=== PATIENT | male | born 1980 | race Caucasian/White ===

== ENCOUNTER → 2016-11-24 06:06 | Day surgery (SDC) | payer BC ==
[~2016-11-24 06:06] MED LIST: Buffered Lidocaine 1% SYRIN* 3 ML/SYR SYRINGE INTRADERM ONE; Bupivacaine 0.25% EPI 200,000* 30 ML SDV ONE; Dexamethasone IV* 4 MG/ML 1 ML (4 MG) IV SLOW PU ONE; Dexamethasone IV* 4 MG/ML 1 ML (4 MG) ONE; Famotidine IV* 10 MG/ML 2 ML (20 mg) IV ONE; Famotidine IV* 10 MG/ML 2 ML (20 mg) ONE; HYDROcodone/ACETAMIN 5-325 MG* 1 TAB PO PRN; Ketorolac INJ* 30 MG/ML 1 ML VIAL ONE; Lidocaine 2% PF* 5 ML VIAL ONE; Midazolam* 1 MG/ML 5 ML VIAL (5 MG) ONE; Ondansetron INJ* 2 MG/ML VIAL ONE; PROCHLORPERAZINE INJ 5 MG/ML 2 ML VIAL IV PRN; Propofol* 10 MG/ML 20 ML BTL IV PUSH ONE; ceFAZolin 2 GM PREMIX(*) 2 GM/50 ML BAG IVPB ONE; fentaNYL* 50 MCG/ML 2 ML VIAL (100 MCG VIAL) IV PRN; fentaNYL* 50 MCG/ML 2 ML VIAL (100 MCG VIAL) ONE; oxyCODONE/Acetamin 5/325 MG* TAB PO PRN
[2016-11-24 09:19] VITALS: BP 118/77
--- NOTE | 2016-11-24 23:46 | OP ---
DATE OF OPERATION: 11/24/16 - [facility] DATE OF : 76 SURGEON: Leslee Foster MD FOX RAISER: Geni Gonzalez PA-C ANESTHESIOLOGIST: Wanda Hamilton MD ANESTHESIA: General. PRE-OP DIAGNOSIS: Left knee medial meniscal tear. POST-OP DIAGNOSES: Left knee medial meniscal tear, lateral root of the meniscus partial tear, and plica. OPERATIVE PROCEDURE: Left knee arthroscopy with partial medial meniscectomy and partial meniscectomy of the lateral root as well plica excision. COMPLICATIONS: None. ESTIMATED BLOOD LOSS: Minimal. INDICATIONS: Mr. Real is a 35-year-old male who had sustained an injury to his left knee several months ago. He was diagnosed with a meniscus tear. We tried an exhaustive conservative management including physical therapy and antiinflammatories. He continued to have persistent mechanical symptoms that were medially based. After extensive discussion of the risks and benefits of surgery versus nonoperative treatment, he elected to proceed with surgical treatment. Risks included but are not limited to bleeding, infection, damage to nerves, vessels, surrounding structures, the wound nonhealing, persistent pain, need for further surgery, scarring, stiffness, failure of the repair, incomplete relief of symptoms, risks of anesthesia, and risks of DVT. He has elected to proceed. DESCRIPTION OF PROCEDURE: The patient was greeted in the preoperative area by the attending surgeon. Correct extremity was marked, consent was confirmed. The patient was brought to the operating suite, where he was placed in the supine position on the operating table. He then underwent general anesthesia and LMA intubation, after which an examination of the knee was done. He was found to have full range of motion with a mild effusion, a stable Jazmin, negative posterior drawer, stable to varus and valgus stress. An unsterile tourniquet was placed high on the proximal thigh. The lateral post was positioned and after a miniature surgical pause, the knee was intraarticularly injected with 0.25% Marcaine with epi. The left knee was prepped and draped in the usual sterile fashion beginning with chlorhexidine, soap scrub, and alcohol wipe, and final prep with ChloraPrep. After appropriate surgical pause indicating site, side, procedure, and administration of antibiotics, the standard roger-lateral portal was made sharply with 11 blade, the scope was introduced into the joint, and joint was examined. The patellofemoral joint had grade 0 changes. There were small loose fragments that were floating loose bodies and these were all less than 5 mm. The lateral gutter was cleaned without any loose body. The medial gutter was difficult to visualize due to a large plica that was obscuring the view. The scope was then placed in the notch. There was abundant fat pad anteriorly. The medial portal was made in an outside-in fashion and the shaver was used to debride the fat pad. The ACL and PCL were intact. The plica was then debrided back gently such that the medial compartment could be exposed. The knee was then placed with slight valgus just shy of extension and the medial compartment was examined. Medial femoral condyle had grade 0 changes except for right above the meniscus and the weightbearing zone had grade 1 changes. The medial tibial plateau had grade 0 to 1 changes except for the area around the tear, which had grade 1 to 2 changes. There was an unstable parrot-beak type flap that extended from just medial to the root or just on the periphery of the root, but the root was intact. The parrot-beak was then displaced and found to be all in the white-white zone. Decision was made to not repair this as there was a low chance of this healing. Therefore, using biters and carlo , the unstable flap was then carefully removed. This was about 30% of the meniscus space approximately. The shaver and biter were then used to remove any of the unstable edges. The meniscus was probed and found to be intact. The knee was then placed in a trablu-lh-rspu position and the lateral compartment was examined. There were grade 0 changes of the lateral femoral condyle and lateral tibial plateau. The body of the meniscus was intact, but the root had some mild unstable fraying. This was debrided back using the shaver. The knee was then placed in full extension and the plica was further examined and it was completely released, so that it would not rub against the medial femoral condyle. All fluid and debris were then removed from the joint. The portals were closed with 3-0 nylon. The knee was then intraarticularly injected with 0.25% Marcaine plain. Sterile dressings were applied as well as a Cryo/Cuff. He was awoken from anesthesia and transferred to PACU in stable condition. POSTOPERATIVE PLAN: He will be weightbearing as tolerated. He will be allowed to work on range motion as tolerated. He will be discharged on pain medication as well as antiinflammatories. DVT prophylaxis was considered, but deferred due to no previous personal or family history. I will see the patient back in 10 to 14 days. CC: ANTWAN ____ [id number]/CPS #: [id number] MTDD
== END | disposition home or self-care (01) ==
LOC: OR 06:06
PROVIDERS: ATTEND Orthopaedic Surgery
DX: S83.232A Complex tear of medial meniscus, current injury, left knee, initial encounter (principal); M67.52 Plica syndrome, left knee; J45.909 Unspecified asthma, uncomplicated; X58.XXXA Exposure to other specified factors, initial encounter; Y93.9 Activity, unspecified; Y92.9 Unspecified place or not applicable
CPT/HCPCS: J0690; J1100; J1885; J2250; J2405; J2704; J3010

== ENCOUNTER 2019-02-12 11:11 | Emergency (ER) | payer SELFPAY ==
[2019-02-12 11:56] VITALS: BP 115/70
--- NOTE | 2019-02-12 12:44 | UC ---
Nausea/Vomiting/Diarrhea HPI - HPI Summary HPI Summary: 38-year-old male presents with 5 day history of watery diarrhea and lower abdominal cramping. Having multiple episodes of diarrhea daily especially after eating or drinking anything. Reports subjective fever and chills for the first 2 days of symptoms. Occasional nausea especially after eating. States he has noted some "red things" in his stool but unsure if its blood. Has well water. No one else in the household is ill. State he was running and stopped at a [place] to wet down his face and head 2 days prior to onset of symptoms but did not drink the water. Denies recent travel, antibiotic use, dizziness, or lightheadedness. - History of Current Complaint Chief Complaint: UCGI Stated Complaint: ABDOMINAL PAIN, AND DIARRHEA Time Seen by Provider: 02/12/19 12:39 Hx Obtained From: Patient Pain Intensity: 9 - Allergies/Home Medications Allergies/Adverse Reactions: Allergies Allergy/AdvReac Type Severity Reaction Status Date / Time No Known Allergies Allergy Verified 02/12/19 11:56 PMH/Surg Hx/FS Hx/Imm Hx Previously Healthy: Yes - Denies significant PMH - Surgical History Surgical History: Yes Surgery Procedure, Year, and Place: WISDOM TEETH. vasectomy. meniscus removal - Family History Known Family History: Positive: Other - Diverticulitis (Multiple family members) - Social History Occupation: Employed Full-time Lives: With Family Alcohol Use: Weekly Alcohol Amount: 3-4 drinks per week Substance Use Type: Marijuana Smoking Status (MU): Former Smoker Type: Cigarettes Amount Used/How Often: 1 ppd When Did the Patient Quit Smoking/Using Tobacco: quit 12 yrs ago Review of Systems All Other Systems Reviewed And Are Negative: Yes Constitutional: Positive: Fever Skin: Negative: Rash Respiratory: Positive: Negative Cardiovascular: Positive: Negative Gastrointestinal: Positive: Diarrhea. Negative: Vomiting Genitourinary: Positive: Negative Neurological: Positive: Negative Psychological: Positive: Negative Is Patient Immunocompromised?: No Physical Exam - Summary Physical Exam Summary: GENERAL APPEARANCE: Well developed, well nourished, alert and cooperative, and appears to be in no acute distress. CARDIAC: Normal S1 and S2. No S3, S4 or murmurs. Rhythm is regular. There is no peripheral edema, cyanosis or pallor. Extremities are warm and well perfused. Capillary refill is less than 2 seconds. Peripheral pulses intact. LUNGS: Clear to auscultation without rales, rhonchi, wheezing or diminished breath sounds. ABDOMEN: Positive bowel sounds. Soft, nondistended. Mild LLQ tenderness. No guarding or rebound. No masses or hepatosplenomegally. MUSKULOSKELETAL: ROM intact to all extremities. No joint erythema or tenderness. Normal muscular development. Normal gait. SKIN: Skin normal color, texture and turgor with no lesions or eruptions. Triage Information Reviewed: Yes Vital Signs: Initial Vital Signs Temp 98.5 F 02/12/19 11:51 Pulse 111 02/12/19 11:51 Resp 18 02/12/19 11:51 BP 115/70 02/12/19 11:51 Pulse Ox 100 02/12/19 11:51 Vital Signs Reviewed: Yes Naus/Vom/Diarrhea Course/Dx - Course Course Of Treatment: 38-year-old male presents with 5 day history of watery diarrhea and lower abdominal cramping. Having multiple episodes of diarrhea daily especially after eating or drinking anything. Reports subjective fever and chills for the first 2 days of symptoms. Occasional nausea especially after eating. States he has noted some "red things" in his stool but unsure if its blood. Has well water. No one else in the household is ill. State he was running and stopped at a [place] to wet down his face and head 2 days prior to onset of symptoms but did not drink the water. Denies recent travel, antibiotic use, dizziness, or lightheadedness. Afebrile. Mild tachycardia otherwise VSS. Patient had some mild LLQ tenderness without guarding or rebound and otherwise unremarkable exam. Patient was able to provide a stool sample so was sent for stool culture, ova and parasite, occult blood, and fecal lactoferrin. Discussed with the patient that with his family history of diverticulitis and his LLQ tenderness that I could not rule this out as a potential cause of his symptoms although I have a low suspicion at this time. Patient does not feel that his symptoms are leaf sorter enough at this time and is electing for watchful waiting. I am recommending conservative treatment for acute diarrhea pending the stool results. Anticipatory guidance and warning symptoms were reviewed with the patient. Verbalizes understanding and agrees with POC. - Differential Dx/Diagnosis Differential Diagnoses - Male: Appendicitis, Diverticulitis, Diverticulosis, Enterocolitis, Gastroenteritis (Viral), Gastroenteritis (Bacterial), Colitis Provider Diagnosis: Acute diarrhea Condition At Discharge: Stable Discharge - Sign-Out/Discharge Documenting (check all that apply): Patient Departure All imaging exams completed and their final reports reviewed: No Studies - Discharge Plan Condition: Stable Disposition: HOME Patient Education Materials: Acute Diarrhea (ED) Referrals: No Primary Care Phys,NOPCP [Primary Care Provider] - Additional Instructions: Acute diarrhea typically resolves on its own without treatment over 2-3 days. The most important consideration with diarrhea is avoiding dehydration. Be sure to drink plenty of fluids. Avoid beverages containing caffeine or artificial sweeteners as these can worsen symptoms. We have sent a stool specimen for testing today. It will take 24-48 hours to get these results. If these show any need for antibiotics we will contact you and start you on an appropriate treatment. Be sure to eat a well balanced diet. Boiled starches and cereals (potatoes, rice , cream of wheat, oatmeal) as well as food such as crackers, toast, bananas, soups and boiled vegetables are usually recommended if you are having watery diarrhea. Be sure to use good hand hygiene to prevent spreading infection. Use an over the counter pain medication such as acetaminophen (Tylenol) or ibuprofen (Advil, Motrin) according to directions as needed for aches and pains. Return here or follow up with your primary care provider in 3-5 days if symptoms persist. Seek immediate medical attention in the emergency room if you have fever greater than 100.5 F, have severe abdominal pain, persistent vomiting, blood in your vomit or stool, you become weak or dizzy, or have any worsening of symptoms. - Billing Disposition and Condition Condition: STABLE Disposition: Home
--- NOTE | 2019-02-13 08:02 | UC ---
- Progress Note Progress Note: stool: + occult blood shiga, culture, parasite pending no change lamont Course/Dx - Diagnoses Provider Diagnoses: Acute diarrhea Discharge - Sign-Out/Discharge Documenting (check all that apply): Post-Discharge Follow Up All imaging exams completed and their final reports reviewed: No Studies - Discharge Plan Condition: Stable Disposition: HOME Patient Education Materials: Acute Diarrhea (ED) Referrals: No Primary Care Phys,NOPCP [Primary Care Provider] - Additional Instructions: Acute diarrhea typically resolves on its own without treatment over 2-3 days. The most important consideration with diarrhea is avoiding dehydration. Be sure to drink plenty of fluids. Avoid beverages containing caffeine or artificial sweeteners as these can worsen symptoms. We have sent a stool specimen for testing today. It will take 24-48 hours to get these results. If these show any need for antibiotics we will contact you and start you on an appropriate treatment. Be sure to eat a well balanced diet. Boiled starches and cereals (potatoes, rice , cream of wheat, oatmeal) as well as food such as crackers, toast, bananas, soups and boiled vegetables are usually recommended if you are having watery diarrhea. Be sure to use good hand hygiene to prevent spreading infection. Use an over the counter pain medication such as acetaminophen (Tylenol) or ibuprofen (Advil, Motrin) according to directions as needed for aches and pains. Return here or follow up with your primary care provider in 3-5 days if symptoms persist. Seek immediate medical attention in the emergency room if you have fever greater than 100.5 F, have severe abdominal pain, persistent vomiting, blood in your vomit or stool, you become weak or dizzy, or have any worsening of symptoms. - Billing Disposition and Condition Condition: STABLE Disposition: Home
--- NOTE | 2019-02-14 07:45 | UC ---
- Progress Note Progress Note: Fecal lactoferrin from February 12, 2019 comes back positive. Stool occult blood was also positive. Stool culture and ova and parasites still pending results. Nursing to call patient. If the patient is still feeling well and his symptoms are resolving no further actions necessary at this time. Let him know that the final stool culture is still pending. If the patient's feeling worse and having abdominal pain increased blood in the stool and/or fevers he needs to get evaluated in the emergency department. Course/Dx - Diagnoses Provider Diagnoses: Acute diarrhea Discharge - Sign-Out/Discharge Documenting (check all that apply): Patient Departure All imaging exams completed and their final reports reviewed: No Studies - Discharge Plan Condition: Stable Disposition: HOME Patient Education Materials: Acute Diarrhea (ED) Referrals: No Primary Care Phys,NOPCP [Primary Care Provider] - Additional Instructions: Acute diarrhea typically resolves on its own without treatment over 2-3 days. The most important consideration with diarrhea is avoiding dehydration. Be sure to drink plenty of fluids. Avoid beverages containing caffeine or artificial sweeteners as these can worsen symptoms. We have sent a stool specimen for testing today. It will take 24-48 hours to get these results. If these show any need for antibiotics we will contact you and start you on an appropriate treatment. Be sure to eat a well balanced diet. Boiled starches and cereals (potatoes, rice , cream of wheat, oatmeal) as well as food such as crackers, toast, bananas, soups and boiled vegetables are usually recommended if you are having watery diarrhea. Be sure to use good hand hygiene to prevent spreading infection. Use an over the counter pain medication such as acetaminophen (Tylenol) or ibuprofen (Advil, Motrin) according to directions as needed for aches and pains. Return here or follow up with your primary care provider in 3-5 days if symptoms persist. Seek immediate medical attention in the emergency room if you have fever greater than 100.5 F, have severe abdominal pain, persistent vomiting, blood in your vomit or stool, you become weak or dizzy, or have any worsening of symptoms. - Billing Disposition and Condition Condition: STABLE Disposition: Home
--- NOTE | 2019-02-14 10:09 | UC ---
- Progress Note Progress Note: Final stool culture returned positive for campylobacter jejuni. Patient was seen in ED and started on ciprofloxacin 500 BID x 10 days. Theoretically this should treat the infection. I spoke with the patient and he states that the abdominal pain has subsided and the diarrhea is improving. Patient was instructed to continue with treatment as directed. He is to seek medical attention if his symptoms do not improve further within the next 2-3 days or if he has any worsening of symptoms. Patient verbalizes understanding and agrees with POC. Course/Dx - Diagnoses Provider Diagnoses: Acute diarrhea Discharge - Sign-Out/Discharge Documenting (check all that apply): Post-Discharge Follow Up All imaging exams completed and their final reports reviewed: No Studies - Discharge Plan Condition: Stable Disposition: HOME Patient Education Materials: Acute Diarrhea (ED) Referrals: No Primary Care Phys,NOPCP [Primary Care Provider] - Additional Instructions: Acute diarrhea typically resolves on its own without treatment over 2-3 days. The most important consideration with diarrhea is avoiding dehydration. Be sure to drink plenty of fluids. Avoid beverages containing caffeine or artificial sweeteners as these can worsen symptoms. We have sent a stool specimen for testing today. It will take 24-48 hours to get these results. If these show any need for antibiotics we will contact you and start you on an appropriate treatment. Be sure to eat a well balanced diet. Boiled starches and cereals (potatoes, rice , cream of wheat, oatmeal) as well as food such as crackers, toast, bananas, soups and boiled vegetables are usually recommended if you are having watery diarrhea. Be sure to use good hand hygiene to prevent spreading infection. Use an over the counter pain medication such as acetaminophen (Tylenol) or ibuprofen (Advil, Motrin) according to directions as needed for aches and pains. Return here or follow up with your primary care provider in 3-5 days if symptoms persist. Seek immediate medical attention in the emergency room if you have fever greater than 100.5 F, have severe abdominal pain, persistent vomiting, blood in your vomit or stool, you become weak or dizzy, or have any worsening of symptoms. - Billing Disposition and Condition Condition: STABLE Disposition: Home
== END 2019-02-12 13:35 | disposition home or self-care (01) ==
LOC: UCEAST 11:11
DX: R19.7 Diarrhea, unspecified (principal); R19.5 Other fecal abnormalities; Z87.891 Personal history of nicotine dependence
CPT/HCPCS: 82272; 83630; 87045; 87046; 87077; 87177; 87209; 87328; 87329; 87899; 99211; G0463

== ENCOUNTER 2019-02-12 17:29 | Emergency (ER) | payer SELFPAY ==
--- NOTE | 2019-02-12 19:16 | ED ---
GI/ HPI - HPI Summary HPI Summary: This patient is a 38 year old M presenting to [facility] with a chief complaint of diarrhea since the morning of 02/08/19. He reports he hasnt been able to keep any food down and has diarrhea every time he eats. While eating he feels a pain in lower abdomen/suprapubic area. He reports on the night of 02/08/19 after eating dinner, he had to go to the bathroom every 1-2 hours. Afterwords he would lay down and that would provide some relief. Pt had a fever on 02/08/19 and 02/10/19 and his stool was blood-streaked. So for the past week he only drank liquid or ate soups, reporting that even drinking Pedilite hurt his stomach badly. Then, 02/11/19 he was feeling better, and ate dinner however that caused his pain, fever and diarrhea to reoccur. This morning he went to [facility] care and did a stool sample; however after going home he felt faint and came to the ED. Pt reports he has a FHx of diverticulitis. - History of Current Complaint Chief Complaint: EDNauseaVomitDiarrh Time Seen by Provider: 02/12/19 18:58 Stated Complaint: ABD PAIN PER PT Hx Obtained From: Patient Onset/Duration: Started Days Ago - 02/08/19, Still Present Timing: Intermittent - every one-two hours after eating Severity: Moderate Current Severity: Moderate Pain Intensity: 5 Location of Pain: Suprapubic Associated Signs and Symptoms: Positive: Blood-Streaked Stool, Diarrhea, Fever, Lightheadedness Aggravating Factor(s): Food Alleviating Factor(s): Lying Still - Allergy/Home Medications Allergies/Adverse Reactions: Allergies Allergy/AdvReac Type Severity Reaction Status Date / Time No Known Allergies Allergy Verified 02/12/19 17:30 PMH/Surg Hx/FS Hx/Imm Hx Endocrine/Hematology History: Denies: Hx Diabetes Cardiovascular History: Denies: Hx Hypertension, Hx Pacemaker/ICD Respiratory History: Reports: Hx Asthma - CHILD, Hx Sleep Apnea - resolved with weight loss Musculoskeletal History: Reports: Other Musculoskeletal History - torn left meniscus Denies: Hx Rheumatoid Arthritis, Hx Osteoporosis Sensory History: Denies: Hx Contacts or Glasses, Hx Hearing Aid Opthamlomology History: Denies: Hx Contacts or Glasses Psychiatric History: Denies: Hx Panic Disorder - Surgical History Surgery Procedure, Year, and Place: WISDOM TEETH. vasectomy. meniscus removal Hx Anesthesia Reactions: No Infectious Disease History: No Infectious Disease History: Denies: Traveled Outside the [place] in Last 30 Days - Family History Known Family History: Positive: Other - Diverticulitis (Multiple family members) , Non-Contributory - Social History Alcohol Use: Weekly Alcohol Amount: 3-4 drinks per week Substance Use Type: Reports: Marijuana Smoking Status (MU): Former Smoker Type: Cigarettes Amount Used/How Often: 1 ppd Review of Systems Positive: Fever Positive: Abdominal Pain, Diarrhea Neurological: Other - Pos - Lightheadedness All Other Systems Reviewed And Are Negative: Yes Physical Exam - Summary Physical Exam Summary: Appearance: The patient is well-nourished in no acute distress and in no acute pain. Skin: The skin is warm and dry and skin color reflects adequate perfusion. HEENT: The head is normocephalic and atraumatic. The pupils are equal and reactive. The conjunctivae are clear and without drainage. Nares are patent and without drainage. Mouth reveals moist mucous membranes and the throat is without erythema and exudate. The external ears are intact. The ear canals are patent and without drainage. The tympanic membranes are intact. Neck: The neck is supple with full range of motion and non-tender. There are no carotid bruits. There is no neck vein distemension. Respiratory: Chest is non-tender. Lungs are clear to auscultation and breath sounds are symmetrical and equal. Cardiovascular: Heart is regular rate and rhythm. There is no murmur or rub auscultated. There is no peripheral edema and pulses are symmetrical and equal. Abdomen: The abdomen is soft. The low abdomen/suprapubic region is tender. There are normal bowel sounds heard in all four quadrants and there is no organomegaly palpated. Musculoskeletal: There is no back tenderness noted. Extremities are non-tender with full range of motion. There is good capillary refill. There is no peripheral edema or calf tenderness elicited. Neurological: Patient is alert and oriented to person, place and time. The patient has symmetrical motor strength in all four extremities. Cranial nerves are grossly intact. Deep tendon reflexes are symmetrical and equal in all four extremities. Psychiatric: The patient has an appropriate affect and does not exhibit any anxiety or depression. Triage Information Reviewed: Yes Vital Signs On Initial Exam: Initial Vitals Temp Pulse Resp BP Pulse Ox 98.2 F 62 14 134/87 99 02/12/19 17:30 02/12/19 17:30 02/12/19 17:30 02/12/19 17:30 02/12/19 17:30 Vital Signs Reviewed: Yes Diagnostics - Vital Signs Vital Signs Temp Pulse Resp BP Pulse Ox 02/12/19 18:49 56 100 02/12/19 18:47 60 122/88 100 02/12/19 17:30 98.2 F 62 14 134/87 99 - Laboratory Lab Statement: Any lab studies that have been ordered have been reviewed, and results considered in the medical decision making process. - CT ABD/Pel CT CT Interpretation Completed By: Radiologist Summary of CT Findings: Abd/Pel CT reveals, per radiologist, IMPRESSION: Mild focal ileus of small bowel, a nonspecific finding in the left upper abdomen. No renal calculi or obstructive uropathy. ED physician has reviewed this radiology report. GIGU Course/Dx - Course Course Of Treatment: Mr. Real presented with the concern that he was worsening. he was evaluated in the [facility] earlier today for diarrhea and abdominal pain and stool samples were sent. He was warned that this could be diverticulitis as he has a family history. Labs and ST were fine here. He had blood in his stool but unfortuantely the fecal lactoferrin was cancelled for some reason. I will give him Cipro awaiting cultures since he feels worse and there is blood. - Diagnoses Provider Diagnoses: Gastroenteritis Discharge - Sign-Out/Discharge Documenting (check all that apply): Patient Departure - Discharge Patient Received Moderate/Deep Sedation with Procedure: No - Discharge Plan Condition: Stable Disposition: HOME Prescriptions: Ciprofloxacin TAB* [Cipro Tab*] 500 mg PO BID #20 tab Patient Education Materials: Gastroenteritis (ED) Referrals: No Primary Care Phys,NOPCP [Primary Care Provider] - [facility] [Outside] - 3 Days Additional Instructions: Follow up with primary care provider within 2-3 days. RETURN TO THE EMERGENCY DEPARTMENT FOR CHANGING OR WORSENING SYMPTOMS. - Billing Disposition and Condition Condition: STABLE Disposition: Home - Attestation Statements Document Initiated by Scribe: Yes Documenting Scribe: [facility] Provider For Whom Scribe is Documenting (Include Credential): Dr. Luis M Burt MD Scribe Attestation: I, Monique Davis, scribed for Dr. Luis M Burt MD on 02/13/19 at 1340. Scribe Documentation Reviewed: Yes Provider Attestation: The documentation as recorded by the scribe, Monique Davis accurately reflects the service I personally performed and the decisions made by me, Dr. Luis M Burt MD Status of Scribe Document: Viewed
[2019-02-12 21:57] VITALS: BP 123/80
== END 2019-02-12 21:56 | disposition home or self-care (01) ==
LOC: ED 17:29
DX: K52.9 Noninfective gastroenteritis and colitis, unspecified (principal); Z87.891 Personal history of nicotine dependence
CPT/HCPCS: 74176; 99283

== ENCOUNTER 2019-08-31 09:05 | Day surgery (SDC) | payer OTHER ==
[~2019-08-31 09:05] MED LIST changes: +Buffered Lidocaine 1% SYRIN* 1 ML/SYRINGE INTRADERM ONE; -Buffered Lidocaine 1% SYRIN* 3 ML/SYR SYRINGE INTRADERM ONE; -Bupivacaine 0.25% EPI 200,000* 30 ML SDV ONE; -Dexamethasone IV* 4 MG/ML 1 ML (4 MG) IV SLOW PU ONE; -Dexamethasone IV* 4 MG/ML 1 ML (4 MG) ONE; +Dexamethasone TAB* 4 MG PO ONE; -Famotidine IV* 10 MG/ML 2 ML (20 mg) ONE; -HYDROcodone/ACETAMIN 5-325 MG* 1 TAB PO PRN; -Ketorolac INJ* 30 MG/ML 1 ML VIAL ONE; +Lactated Ringers 1000 ML Bag* 1,000 ML IV SCH; -Lidocaine 2% PF* 5 ML VIAL ONE; -Midazolam* 1 MG/ML 5 ML VIAL (5 MG) ONE; -Ondansetron INJ* 2 MG/ML VIAL ONE; -PROCHLORPERAZINE INJ 5 MG/ML 2 ML VIAL IV PRN; -Propofol* 10 MG/ML 20 ML BTL IV PUSH ONE; -ceFAZolin 2 GM PREMIX(*) 2 GM/50 ML BAG IVPB ONE; -fentaNYL* 50 MCG/ML 2 ML VIAL (100 MCG VIAL) IV PRN; -fentaNYL* 50 MCG/ML 2 ML VIAL (100 MCG VIAL) ONE; -oxyCODONE/Acetamin 5/325 MG* TAB PO PRN
[2019-08-31] MEDS ORDERED: ceFAZolin 2 GM PREMIX in ORs 2 GM/50 ML BAG ONE (09:36)
[2019-08-31] MEDS ORDERED: Dexamethasone IV* 4 MG/ML 1 ML (4 MG) ONE ×2 (09:36→11:05)
[2019-08-31] MEDS ORDERED: Famotidine IV* 10 MG/ML 2 ML (20 mg) ONE (09:37)
[2019-08-31] MEDS ORDERED: Buffered Lidocaine 1% SYRIN* 1 ML/SYRINGE INTRADERM ONE (09:37)
[2019-08-31] MEDS ORDERED: EPINEPHRINE 1 MG/ML 1 ML VIAL ONE (11:21)
[2019-08-31] MEDS ORDERED: Bupivacaine 0.25% EPI 200,000* 30 ML SDV ONE (11:21)
[2019-08-31] MEDS ORDERED: Ondansetron INJ* 2 MG/ML VIAL ONE (11:23)
[2019-08-31] MEDS ORDERED: Midazolam* 1 MG/ML 5 ML VIAL (5 MG) ONE (11:23)
[2019-08-31] MEDS ORDERED: Propofol* 10 MG/ML 20 ML BTL ONE (11:23)
[2019-08-31] MEDS ORDERED: fentaNYL* 50 MCG/ML 5 ML VIAL (250 MCG VIAL) ONE (11:23)
[2019-08-31] MEDS ORDERED: Ketorolac INJ* 30 MG/ML 1 ML VIAL ONE (11:23)
[2019-08-31] MEDS ORDERED: Lidocaine 2% PF * 5 ML VIAL ONE (11:23)
[2019-08-31] MEDS ORDERED: Naloxone* 0.4 MG/ML 1 ML VIAL IV PRN (12:12)
[2019-08-31] MEDS ORDERED: oxyCODONE/Acetamin 5/325 MG* TAB PO PRN (12:12)
[2019-08-31] MEDS ORDERED: Scopolamine 1.5 mg* PATCH TRANSDERM PRN (12:12)
[2019-08-31] MEDS ORDERED: DiMENhydriNATE IV* 50 MG/ML VIAL IV PUSH PRN (12:12)
[2019-08-31] MEDS ORDERED: fentaNYL* 50 MCG/ML 2 ML VIAL (100 MCG VIAL) IV PRN (12:12)
[2019-08-31] MEDS ORDERED: Ondansetron INJ* 2 MG/ML VIAL IV PRN (12:12)
[2019-08-31] MEDS ORDERED: fentaNYL* 50 MCG/ML 2 ML VIAL (100 MCG VIAL) ONE (13:51)
[2019-08-31 14:18] VITALS: BP 139/92
--- NOTE | 2019-09-02 03:21 | OP ---
OPERATIVE REPORT: DATE OF OPERATION: 08/31/19 DATE OF : 76 SURGEON: Eric Snider MD GLASS VIAL FILLER: REYES Valdes A physician general assistant was required for the length of the procedure, for assistance with the patient positioning, retraction, knee manipulation, and closure. ANESTHESIOLOGIST: Dr. Gruber ANESTHESIA: General anesthesia, approximately 20 cc of Marcaine 0.25% with epinephrine. PRE-OP DIAGNOSIS: Right knee medial meniscus tear. POST-OP DIAGNOSIS: Right knee medial meniscus tear. OPERATIVE PROCEDURE: Right knee arthroscopic partial medial meniscectomy. ANTIBIOTICS: Ancef 2 g IV. IV FLUIDS: See Anesthesia note. YJPI-DZ-UCSB-TIME: 17 minutes. TOURNIQUET TIME: 21 minutes at 300 mmHg, right thigh tourniquet. COMPLICATIONS: None. ESTIMATED BLOOD LOSS: Minimal. INDICATIONS FOR PROCEDURE: The patient is a 38-year-old man, who injured his right knee in the early May 2019. He responded insufficiently to nonoperative management and opted for surgery. Preoperative MRI indicated nondisplaced medial meniscus tear between the posterior body and posterior horn undersurface. Discussed preoperative heterogeneous nature of meniscus tears and their treatment. Discussed risks and potential complications of surgery. DESCRIPTION OF PROCEDURE: In preoperative holding, the patient signed a written consent. Operative extremity was marked in the preoperative holding. The patient was taken back to the operating room and placed supine on the operating room table. Sedated and intubated. [place] bump was placed under the right hemipelvis. Tourniquet was placed around the right proximal thigh. Right distal thigh was placed in the circumferential thigh marie. The operative table was elevated and the foot of the table was dropped. The right lower extremity was prepped and draped. Formal surgical time- out was performed. Esmarch was applied and tourniquet was elevated. Anterolateral knee arthroscopy portal was made using standard technique. Entered arthroscope into the knee. Patellofemoral compartment showed no articular cartilage damage whatsoever. There was a medial plica present. There was a small amount of anterior inflamed soft tissue. I dropped down to the medial compartment. No articular cartilage injury. There was a visible medial meniscus tear. I created an anteromedial knee arthroscopy portal under direct visualization. Prior to working on the meniscus, I next entered an arthroscopic shaver and debrided the ligamentum mucosum as well as some inflamed tissue anteriorly. I moved to the medial compartment. There was a clear displaced flap of meniscus at about the junction of the posterior body and posterior horn. It was flipped inferior to the remainder of the meniscus. I was able to probe it and deliver it into the compartment that is supposed to have slipped underneath the remainder of the meniscus. Using meniscal biters and arthroscopic shaver, I debrided that meniscus back to a stable rim of tissue. I worked both through the anteromedial and through the anterolateral portals. Confirmed stability of meniscus. There was still meniscal rim left remaining. Next moved to the lateral compartment. No meniscus tear nor articular cartilage injury. Next moved back up to the patellofemoral compartment. I debrided a little bit more soft tissue inflammation and debrided the medial plica. Removed fluid and instruments from the knee. Closed skin incisions with figure- of- eight and 12 stitches using nylon 3-0 suture. Local anesthesia was injected about the skin incisions. Xeroform, 4x4s, ABD, sterile Webril, Carlos bandage from foot to proximal groin. Cooling unit applied. The patient was awakened, extubated, and brought to the PACU. DISPOSITION: The patient was discharged home with wound care instructions. He will see me 10 to 14 days postoperatively. He is on crutches, weightbearing as tolerated to wean off the crutches as he is able. He will start physical therapy immediately. Percocet is needed for pain control and aspirin for 2 weeks for DVT prophylaxis. [id number]/CPS #: [id number] MTDD
== END 2019-08-31 14:50 | disposition home or self-care (01) ==
LOC: OR 09:05
PROVIDERS: ATTEND Orthopaedic Surgery
DX: S83.241A Other tear of medial meniscus, current injury, right knee, initial encounter (principal); X58.XXXA Exposure to other specified factors, initial encounter; Y92.9 Unspecified place or not applicable
CPT/HCPCS: J0690; J1100; J1885; J2250; J2405; J2704; J3010

== ENCOUNTER 2019-10-21 10:11 | Emergency (ER) | payer OTHER ==
--- OUTSIDE RECORDS SUMMARY | 2019-10-21 10:17 | XMS REPORT | Continuity of Care Document ---
:1980 External Reference #:[id number] Author Name Eric Snider MD (transmitted by agent of provider Sia Ma) Address [address] [place] [address] Care Team Providers Name Role Phone Patient's Choice Care Team Information Supervisor/Port Director Unavailable Problems Active Problems Provider Date Complex tear of medial meniscus, current injury, Leslee Foster MD Onset: left knee, subsequent encounter Plica syndrome, left knee Leslee Foster MD Onset: 12/07/2016 Other tear of lateral meniscus, current injury, Leslee Foster MD Onset: 01/04 left knee, subsequent encounter Social History Type Date Description Comments Sex Unknown ETOH Use Occasionally consumes alcohol Tobacco Use Start: Unknown Patient has never smoked Smoking Status Reviewed: 09/13/19 Patient has never smoked Exercise Type/Frequency Exercises regularly Allergies, Adverse Reactions, Alerts Description No Known Drug Allergies Medications Active Medications SIG Qnty Indications Ordering Provider Date Aspirin Adult 1 tab by mouth 28tabs Eric Oquendo 08/31/2019 325mg every 12 hours MD Tylor Tablets for 2 weeks Oxycodone-Acetaminoph 1 tab by mouth 28tabs Eric Oquendo 08/31/2019 en every 6 hours as MD Tylor 5-325mg Tablets needed for pain Immunizations Description No Information Available Vital Signs Date Vital Result Comment 09/13/2019 10:58am Height 71 inches 5'11" Heart Rate 67 /min BP Systolic 120 mmHg BP Diastolic 82 mmHg Respiratory Rate 18 /min Body Temperature 98.0 F Pain Level 5 08/13/2019 2:57pm Height 71 inches 5'11" Weight 201.00 lb Heart Rate 72 /min BP Systolic 132 mmHg BP Diastolic 74 mmHg Respiratory Rate 12 /min Body Temperature 97.9 F Pain Level 2 BMI (Body Mass Index) 28.0 kg/m2 Results Description No Information Available Procedures Date Code Description Status 08/31/2019 68766 Arthroscopy,Knee,Meniscectomy Medial Or Lateral Completed 08/31/2019 63596 Arthroscopy,Knee,Meniscectomy Medial Or Lateral Completed Medical Devices Description No Information Available Encounters Type Date Location Provider Dx Diagnosis Office Visit 08/13/2019 [facility] Eric Oquendo S83.241A Oth tear of 2:30p at Yoselin Snider MD medial meniscus, current injury, r knee, init Assessments Date Code Description Provider 09/13/2019 S83.241A Other tear of medial meniscus, current Eric Snider MD injury, right knee, initial encounter 08/31/2019 S83.241A Other tear of medial meniscus, current Eric Snider MD injury, right knee, initial encounter 08/31/2019 S83.241A Other tear of medial meniscus, current REYES Valdes injury, right knee, initial encounter 08/13/2019 S83.241A Other tear of medial meniscus, current Eric Snider MD injury, right knee, initial encounter Plan of Treatment Future Appointment(s):10/16/2019 9:45 am - Eric Snider MD at [facility] [place]/13/2019 - Eric Snider [id number] Other tear of medial meniscus, current injury, right knee, initial encounterNew Therapy: Physical TherapyFollow up:Follow up: 4 weeks Functional Status Description No Information Available Mental Status Description No Information Available Referrals Description No Information Available
[2019-10-21 10:58] LABS: Influenza A Molecular Negative (Negative); Influenza B Molecular Negative (Negative)
--- NOTE | 2019-10-21 11:01 | UC ---
Throat Pain/Nasal Remi HPI - HPI Summary HPI Summary: Patient is 38 year old gentleman, who presents today to the urgent care with upper respiratory symptoms since yesterday. He reports sore throat, fever, SOB that started yesterday morning. Has hx of asthma but does not take any inhalers. Has traveled by airplane within the [place] 7[place]8 times in the past month- has traveled to [place], [place], [place], [place] in the past 3 weeks with stopover [facility] in [place]. Concern for henry virus but not sure of anybody specific he came in contact with. He denies any shortness of breath while sitting but he feels that if he has to run he will get short of breath No chest pain . - History of Current Complaint Chief Complaint: UCGeneralIllness Stated Complaint: FEVER & SORE THROAT Time Seen by Provider: 10/21/19 10:56 Hx Obtained From: Patient Pain Intensity: 1 - Allergies/Home Medications Allergies/Adverse Reactions: Allergies Allergy/AdvReac Type Severity Reaction Status Date / Time No Known Allergies Allergy Verified 10/21/19 10:23 Home Medications: Home Medications NK [No Home Medications Reported] 10/21/19 [History Confirmed 10/21/19] PMH/Surg Hx/FS Hx/Imm Hx - Additional Past Medical History Additional PMH: Past Medical History : asthma, not on inhalers Past Surgical History: wisdom tooth, vasectomy, left meniscectomy Family History : negative Social History : weekly alcohol, former smoker, occasional marijuana. Previously Healthy: Yes - Surgical History Surgical History: Yes Surgery Procedure, Year, and Place: WISDOM TEETH. vasectomy. left meniscus removal 2020 - Family History Known Family History: Positive: Other - Diverticulitis (Multiple family members) , Non-Contributory - Social History Alcohol Use: Weekly Alcohol Amount: 2-3 glasses every other day Substance Use Type: Marijuana Substance Use Comment - Amount & Last Used: occassionally Smoking Status (MU): Former Smoker Type: Cigarettes Amount Used/How Often: 1 ppd Length of Time of Smoking/Using Tobacco: 10 years When Did the Patient Quit Smoking/Using Tobacco: 2010 Review of Systems All Other Systems Reviewed And Are Negative: Yes Constitutional: Positive: Fever Eyes: Positive: Negative ENT: Positive: Sore Throat, Sinus Congestion Respiratory: Positive: Cough Cardiovascular: Positive: Negative Gastrointestinal: Positive: Negative Genitourinary: Positive: Negative Motor: Positive: Negative Neurovascular: Positive: Negative Musculoskeletal: Positive: Negative Neurological/Mental Status: Positive: Negative Psychological: Positive: Negative Is Patient Immunocompromised?: No Physical Exam - Summary Physical Exam Summary: Physical Exam: Const: Appears well. No signs of apparent distress present. Alert and oriented x 3. Musculo: Walks with a normal gait. Head/Face: Atraumatic, normocephalic on inspection. Eyes: EOMI and PERRLA in both eyes. Conjunctivae clear. No discharge noted ENT: Hearing normal, TM normal appearing bilaterally, non bulging , non erythematous . pharyngeal erythema Anterior cervical lymphadenopathy noted- tenderness. Respiratory: Respirations are unlabored. Lungs clear to auscultation bilaterally, no wheezing , rhonchi or rales noted . CVS: Regular rate and Rhythm, S1S2 normal , no murmurs identified. Extremities: Peripheral circulation is grossly normal. Pulses 2+ Abdomen : Soft non tender , nondistended , Bowel sounds present . No guarding , rebound tenderness or rigidity noted. Skin: No lesions or rash located on the upper extremities or on the lower extremities. Neuro: Cranial nerves II to XII intact, motor and sensory intact. DTR Intact bilaterally. Mood is normal. Affect is normal. Triage Information Reviewed: Yes Vital Signs: Initial Vital Signs Temp 101.1 F 10/21/19 10:23 Pulse 103 10/21/19 10:23 Resp 20 10/21/19 10:23 BP 127/81 10/21/19 10:23 Pulse Ox 98 10/21/19 10:23 Vital Signs Reviewed: Yes Throat Pain/Nasal Course/Dx - Course Course Of Treatment: flu neg strep neg Patient had significant travel within the [place] in the last 30 days, infection control was called. Infection control stated that [facility] would like to consider pt as a PUI for coronavirus. HEPA filter was brought to 1 and isolation procedures initiated. Patient had a mask on all the time . I had the mask on all the time. I spoke to Dr. Kelby stone the possible exposure: He advised that the having the mask on all the time by the patient and the provider , risk of exposure is minimal .Mask alone will be sufficient in outpatient setting . Got a call from Denita Montez from [facility] and labs were drawn and send out appropriately . He was given a dose of ibuprofen and albuterol HFA. Patient discharged as per guidance from [facility] . Recommended for self quarantine. - Differential Dx/Diagnosis Provider Diagnosis: Viral illness Discharge ED - Sign-Out/Discharge Documenting (check all that apply): Patient Departure All imaging exams completed and their final reports reviewed: No Studies - Discharge Plan Condition: Guarded Disposition: HOME [facility] [[facility]] No Primary Care Phys,NOPCP [Primary Care Provider] - Additional Instructions: - Self quarantine as directed by health department - Please be in contact with health department for questions, concerns. - Lab results will be reported to you from the health department - We will call you with any further instructions, blood work. - Billing Disposition and Condition Condition: GUARDED Disposition: Home
[2019-10-21] MEDS ORDERED: Ibuprofen TAB* 600 MG PO ONE (13:56)
[2019-10-21] MEDS ORDERED: Albuterol HFA INHALER* 8 gm MDI INH ONE (13:56)
[2019-10-21 15:07] VITALS: BP 139/86
--- NOTE | 2019-10-23 22:03 | UC ---
- Progress Note Progress Note: Viral culture to detect the causative agent of COVID 19 from December 21, 2019 comes back as not detected. Nursing to call patient inform the patient of the results. Course/Dx - Diagnoses Provider Diagnoses: Viral illness Discharge ED - Sign-Out/Discharge Documenting (check all that apply): Patient Departure All imaging exams completed and their final reports reviewed: No Studies - Discharge Plan Condition: Guarded Disposition: HOME [facility]] No Primary Care Phys,NOPCP [Primary Care Provider] - Additional Instructions: - Self quarantine as directed by health department - Please be in contact with health department for questions, concerns. - Lab results will be reported to you from the health department - We will call you with any further instructions, blood work. - Billing Disposition and Condition Condition: GUARDED Disposition: Home
== END 2019-10-21 14:55 | disposition home or self-care (01) ==
LOC: UCEAST 10:11
DX: B34.9 Viral infection, unspecified (principal); J45.909 Unspecified asthma, uncomplicated; Z87.891 Personal history of nicotine dependence; J02.9 Acute pharyngitis, unspecified; R09.89 Other specified symptoms and signs involving the circulatory and respiratory systems
CPT/HCPCS: 87651; 99212; A9270-GY; G0463

== ENCOUNTER 2019-10-24 09:05 | Emergency (ER) | payer OTHER ==
[2019-10-24 09:31] VITALS: BP 115/76
--- NOTE | 2019-10-24 10:29 | UC ---
FLU HPI - HPI Summary HPI Summary: 38-year-old male presents with persistent URI symptoms and worsening cough. Patient was seen at this facility on 10/21/2019 for same. He tested negative for flu and based on his travel history was considered a person of interest for the Covid-19 virus. Specimens were collected and he was recommended to self isolate. Testing for the Covid-19 virus was negative. Patient states that he is no longer having any fevers however his cough has worsened over the past couple of days and is now occasionally productive for yellow sputum. Has some occasional wheezing that improves with use of his albuterol inhaler. Denies ear pain, dysphagia, chest pain, abdominal pain, nausea, vomiting, or diarrhea. - History of Current Complaint Chief Complaint: UCRespiratory Stated Complaint: SHORT OF BREATH COUGH CHILLS BODYACHES Time Seen by Provider: 10/24/19 10:13 Hx Obtained From: Patient Pain Intensity: 4 - Allergy/Home Medications Allergies/Adverse Reactions: Allergies Allergy/AdvReac Type Severity Reaction Status Date / Time No Known Allergies Allergy Verified 10/24/19 09:31 Home Medications: Home Medications Albuterol Sulfate [Albuterol Sulfate Hfa] 8.5 gm PO Q4H PRN 10/24/19 [History Confirmed 10/24/19] Benzonatate CAP* [Tessalon 100 MG CAP*] 100 mg PO TID PRN #21 cap 10/24/19 [Rx] Ibuprofen 400 mg PO Q4H PRN 10/24/19 [History Confirmed 10/24/19] PMH/Surg Hx/FS Hx/Imm Hx Previously Healthy: Yes - Denies significant PMH - Surgical History Surgical History: Yes Surgery Procedure, Year, and Place: WISDOM TEETH. vasectomy. left meniscus removal 2019 - Family History Known Family History: Positive: Other - Diverticulitis (Multiple family members) - Social History Occupation: Employed Full-time Lives: With Family Alcohol Use: Weekly Alcohol Amount: 2-3 glasses every other day Substance Use Type: Marijuana Substance Use Comment - Amount & Last Used: occassionally Smoking Status (MU): Former Smoker Type: Cigarettes Amount Used/How Often: 1 ppd Length of Time of Smoking/Using Tobacco: 10 years When Did the Patient Quit Smoking/Using Tobacco: 2010 Review of Systems All Other Systems Reviewed And Are Negative: Yes Physical Exam - Summary Physical Exam Summary: GENERAL APPEARANCE: Well developed, well nourished, alert and cooperative, and appears to be in no acute distress. EYES: Conjunctiva clear. No drainage. EARS: External auditory canals and tympanic membranes clear, hearing grossly intact. NOSE: No nasal discharge. THROAT: Pharynx normal No tonsilar inflammation, swelling, exudate, or lesions. Uvula midline. NECK: Neck supple, non-tender without lymphadenopathy. CARDIAC: Normal S1 and S2. No S3, S4 or murmurs. Rhythm is regular. There is no peripheral edema, cyanosis or pallor. Extremities are warm and well perfused. Capillary refill is less than 2 seconds. Peripheral pulses intact. LUNGS: Clear to auscultation without rales, rhonchi, wheezing or diminished breath sounds. ABDOMEN: Positive bowel sounds. Soft, nondistended, nontender. No guarding or rebound. No masses or hepatosplenomegally. MUSKULOSKELETAL: ROM intact to all extremities. No joint erythema or tenderness. Normal muscular development. Normal gait. SKIN: Skin normal color, texture and turgor with no lesions or eruptions. Triage Information Reviewed: Yes Vital Signs: Initial Vital Signs Temp 99.3 F 10/24/19 09:23 Pulse 93 10/24/19 09:23 Resp 18 10/24/19 09:23 BP 115/76 10/24/19 09:23 Pulse Ox 98 10/24/19 09:23 Vital Signs Reviewed: Yes Flu Course/Dx - Course Course Of Treatment: 38-year-old male presents with persistent URI symptoms and worsening cough. Patient was seen at this facility on 10/21/2019 for same. He tested negative for flu and based on his travel history was considered a person of interest for the Covid-19 virus. Specimens were collected and he was recommended to self isolate. Testing for the Covid-19 virus was negative. Patient states that he is no longer having any fevers however his cough has worsened over the past couple of days and is now occasionally productive for yellow sputum. Has some occasional wheezing that improves with use of his albuterol inhaler. Denies ear pain, dysphagia, chest pain, abdominal pain, nausea, vomiting, or diarrhea. Afebrile. Vital signs stable. Patient was immediately isolated, mass, and placed in a HEPA filtered room until nursing was able to clear with infectious disease that patient no longer required these precautions. On exam patient had mild to moderate nasal congestion, normal TMs, pharyngeal erythema without tonsillar swelling or exudate, no cervical lymphadenopathy, clear bilateral breath sounds, loose cough, and otherwise an unremarkable exam. Discussed with the patient that his symptoms remain consistent with an upper respiratory infection likely of viral origin and we reviewed the risks and benefits of treating with antibiotics versus continued symptomatic treatment and patient is electing for the latter. I will provide him with a prescription for Tessalon Perles for the cough. He is to continue to use the albuterol inhaler as needed. Patient is to return here or follow up with primary care in 3-5 days if his symptoms persist. Anticipatory guidance warning symptoms reviewed with the patient. Verbalizes understanding and agrees with plan of care. - Differential Dx/Diagnosis Differential Diagnosis/HQI/PQRI: Bronchitis, Influenza, Pneumonia, Upper Respiratory Infection, Other - COVID-19 Provider Diagnosis: Upper respiratory infection with cough and congestion Discharge ED - Sign-Out/Discharge Documenting (check all that apply): Patient Departure All imaging exams completed and their final reports reviewed: No Studies - Discharge Plan Condition: Stable Disposition: HOME Prescriptions: Benzonatate CAP* [Tessalon 100 MG CAP*] 100 mg PO TID PRN #21 cap PRN Reason: Cough Patient Education Materials: Upper Respiratory Infection (ED) Referrals: No Primary Care Phys,NOPCP [Primary Care Provider] - [facility] [Outside] Additional Instructions: Your history and exam are consistent with an upper respiratory infection that is likely of viral origin. Viral infections do not respond to antibiotics and are limited to the treatment of symptoms. Viral infections typically run their course in 7-10 days. Get plenty of rest. Drink plenty of fluids to avoid dehydration especially if you are running any fever. Take over the counter acetaminophen (Tylenol) or ibuprofen (Advil, Motrin) according to directions as needed for pain or fever. Take Tessalon Perles 1 cap every 8 hours as needed for cough. Use salt water gargles several times a day if you have a sore throat. You may also use Chloraseptic spray or Cepacol lonzenges according to directions which contain a numbing medication and can provide some temporary relief from your sore throat. Return here of follow up with primary care in 3-5 days if symptoms persist. I have given you the contact information for the [facility] physician referral service if you need assistance with establishing with a provider. Seek immediate medical attention in the emergency room if you have fever greater than 100.5 F despite taking acetaminophen or ibuprofen, have chest pain , difficulty breathing, are unable to swallow, or have any worsening of symptoms. - Billing Disposition and Condition Condition: STABLE Disposition: Home
== END 2019-10-24 11:55 | disposition home or self-care (01) ==
LOC: UCEAST 09:05
DX: J06.9 Acute upper respiratory infection, unspecified (principal); R05 Cough; R09.81 Nasal congestion; Z87.891 Personal history of nicotine dependence
CPT/HCPCS: 99212; G0463